=== PATIENT | male | born 1995 | race Caucasian/White ===

== ENCOUNTER 2020-01-23 17:39 | Emergency (ER) | payer OTHER ==
[~2020-01-23] VITALS: Ht 188 cm; Wt 88.5 kg
[2020-01-23 17:51] VITALS: Ht 188 cm; Wt 88.5 kg
[2020-01-23 19:35] VITALS: BP 117/60
== END 2020-01-23 19:35 | disposition home or self-care (01) ==
LOC: ED 17:39
DX: B34.9 Viral infection, unspecified (principal); Z20.828 Contact with and (suspected) exposure to other viral communicable diseases
CPT/HCPCS: J1885; U0003-CS

== ENCOUNTER 2020-01-30 21:40 | Emergency (ER) | payer OTHER, SELFPAY ==
[~2020-01-30] VITALS: Ht 188 cm; Wt 86.2 kg
[2020-01-30 21:53] VITALS: Ht 188 cm; Wt 86.2 kg
[2020-01-31 01:29] LABS: BASOPHIL % 0.4 % (0-2); PLATELET COUNT 149 x10^3mcL (130-400); RED CELL DISTRIBUTION WIDTH 12.6 % (11.5-14.5)
[2020-01-31 01:49] LABS: UA SPECIFIC GRAVITY 1.025 (1.005-1.035); microscopic required? YES; urine erythrocyte NEGATIVE (NEGATIVE)
[2020-01-31 01:55] LABS: CARBON DIOXIDE 27.2 mmol/L (21-32); CHLORIDE SERUM 101 mmol/L (98-107); POTASSIUM SERUM 3.7 mmol/L (3.5-5.1); SODIUM SERUM 138 mmol/L (136-145)
[2020-01-31 01:56] LABS: CREATININE SERUM 1.4 mg/dL (0.7-1.3); GFR1 > 60 mL/min; GLUCOSE SERUM 104 mg/dL (74-106)
[2020-01-31 01:57] LABS: ALBUMIN 3.9 g/dL (3.4-5.0); ALKALINE PHOSPHATASE 305 U/L (46-116); ALT/SGPT 379 U/L (16-63); AST/SGOT 151 U/L (15-37); BILIRUBIN TOTAL 1.1 mg/dL (0.20-1.00); C REACTIVE PROTEIN 4.3 mg/dL (<=0.9); LACTIC DEHYDROGENASE (LDH) 578 U/L (100-190); TOTAL PROTEIN, SERUM 7.3 g/dL (6.4-8.2)
[2020-01-31 05:38] VITALS: BP 114/61
== END 2020-01-31 05:38 | disposition home or self-care (01) ==
LOC: ED 21:40
PROVIDERS: Emergency Medicine
DX: B34.9 Viral infection, unspecified (principal); R74.0 Nonspecific elevation of levels of transaminase and lactic acid dehydrogenase [LDH]; Z20.828 Contact with and (suspected) exposure to other viral communicable diseases; R07.89 Other chest pain
CPT/HCPCS: 83880; 85378; 87804; J7030; Q0092

== ENCOUNTER 2020-02-01 13:16 | Emergency (ER) | payer OTHER ==
[~2020-02-01] VITALS: Ht 188 cm; Wt 86.2 kg
[2020-02-01 14:07] VITALS: Ht 188 cm; Wt 86.2 kg
[2020-02-01 15:08] LABS: BASOPHIL % 0.5 % (0-2); PLATELET COUNT 137 x10^3mcL (130-400); RED CELL DISTRIBUTION WIDTH 12.9 % (11.5-14.5)
[2020-02-01 15:21] LABS: CALCIUM 8.6 mg/dL (8.5-10.1); CARBON DIOXIDE 31.1 mmol/L (21-32); CHLORIDE SERUM 104 mmol/L (98-107); GFR1 > 60 mL/min; GLUCOSE SERUM 84 mg/dL (74-106); POTASSIUM SERUM 3.6 mmol/L (3.5-5.1); SODIUM SERUM 140 mmol/L (136-145)
[2020-02-01 15:26] LABS: ALBUMIN 3.6 g/dL (3.4-5.0); ALKALINE PHOSPHATASE 226 U/L (46-116); ALT/SGPT 296 U/L (16-63); AST/SGOT 116 U/L (15-37)
[2020-02-01 16:27] LABS: BILIRUBIN TOTAL 1.01 mg/dL (0.20-1.00)
[2020-02-01 17:10] VITALS: BP 122/58
== END 2020-02-01 17:10 | disposition home or self-care (01) ==
LOC: ED 13:16
PROVIDERS: Emergency Medicine
DX: R89.5 Abnormal microbiological findings in specimens from other organs, systems and tissues (principal); R50.9 Fever, unspecified
CPT/HCPCS: J7030; J7060; Q0092